=== PATIENT | male | born 1970 | race Caucasian/White ===

== ENCOUNTER 2020-09-02 09:40 | Day surgery (SDC) | payer OTHER ==
--- NOTE | 2020-09-01 14:23 | RAD REPORT ---
EXAM DESCRIPTION: RAD - Chest Pa And Lat (2 Views) - 09/01/2020 2:10 pm CLINICAL HISTORY: pe-op, pending cholecystectomy COMPARISON: Two view chest August 2016 TECHNIQUE: Frontal and lateral views of the chest were obtained. FINDINGS: The lungs are clear. Heart size is normal and central vasculature is within normal limit s. No pleural effusion or pneumothorax seen. No acute bony finding noted. No aortic abnormality. IMPRESSION: No acute cardiopulmonary process. No significant change from comparison study.
[2020-09-01 14:53] LABS: Absolute Lymphocytes (CBC) 1.4 K/uL (0.7-4.9); Basophils % 0.8 % (0-1.3); Hematocrit 45.1 % (39.6-49.0); Lymphocytes % 30.5 % (15.3-44.8); RBC Red Blood Cell Count 4.78 M/uL (4.33-5.43)
[2020-09-01 15:06] LABS: Albumin 3.7 g/dL (3.4-5.0); Bilirubin Direct 0.2 mg/dL (0-0.2); Bilirubin Total 0.6 mg/dL (0.2-1.0); Potassium 3.9 mmol/L (3.5-5.1); Protein, Total 7.4 g/dL (6.4-8.2)
--- NOTE | 2020-09-01 18:40 | EKG ---
Test Date: 2020-09-01 Test Time: 14:21:32 Yolk Spray Drier: VIVIENNE MEASUREMENT RESULTS: Intervals: Rate: 57 IA: 172 QRSD: 92 QT: 412 QTc: 401 [place]: P: 44 IA: 172 QRS: 20 T: 6 INTERPRETIVE STATEMENTS: Sinus bradycardia Otherwise normal ECG No previous ECG available for comparison Electronically Signed On 09-01-20 18:40:09 METER TESTER PRIMARY by Eddie Payton
[2020-09-02] MEDS ORDERED: FENTANYL CITR 100 MCG/2 ML ONE (10:00)
[2020-09-02] MEDS ORDERED: KETOROLAC 30 MG/ML INJ ONE (10:00)
[2020-09-02] MEDS ORDERED: propofoL 200 MG/20 ML VIAL IV ONE ×2 (10:00→11:40)
[2020-09-02] MEDS ORDERED: dexAMETHasone 10 MG/ML VIAL ONE (10:00)
[2020-09-02] MEDS ORDERED: MIDAZOLAM HCL 2 MG/2 ML INJ ONE (10:00)
[2020-09-02] MEDS ORDERED: LIDOCAINE 1% MPF 30 ML VIAL ONE (10:01)
[2020-09-02] MEDS ORDERED: ONDANSETRON 4 MG/2 ML VIAL ONE (10:01)
[2020-09-02] MEDS ORDERED: ROCURONIUM 50 MG/5 ML VIAL IV ONE (10:01)
[2020-09-02] MEDS ORDERED: Ringers Lactate 1,000 ML IV ONE ×2 (10:12→12:23)
[2020-09-02] MEDS ORDERED: CEFOXITIN/SWI 1gm 1 GM/10 ML SYR ONE (11:27)
[2020-09-02] MEDS ORDERED: GLYCOPYRROLATE 0.2 MG/ML SYR ONE ×2 (12:04→12:32)
[2020-09-02] MEDS ORDERED: EPHEDRINE SULF 50 MG/ML VIAL ONE (12:05)
--- NOTE | 2020-09-02 12:22 | P.BOP ---
Preoperative diagnosis: symptomatic cholelithiasis, acute cholecytitis, RUQ abd pain Postoperative diagnosis: same Primary procedure: Laparoscopic cholecystectomy Body Mechanic Apprentice: RIKKI PRESSLEY (LIQUOR RECTIFIER) Estimated blood loss: <10cc Specimen: gb Findings: as above Anesthesia: General Complications: None Transferred to: Recovery Room Condition: Good
[2020-09-02] MEDS ORDERED: NEOSTIGMINE 1 MG/ML -5 ML ONE (12:32)
[2020-09-02 13:22] VITALS: TEMP 97.1
[2020-09-02] MEDS ORDERED: CODEINE 30MG/APAP 300MG TAB ONE (14:09)
--- NOTE | 2020-09-02 14:24 | DS ---
Diagnoses: Acute cholecystitis, symptomatic cholelithiasis, right upper quadrant abdominal pain. Procedure: Laparoscopic cholecystectomy. Disposition: Home. Activity: As tolerated. No heavy lifting. Plan: Follow up in my office in 1 week. Call for appointment, [phone]. Keep area dry for 48 hours, then may shower. Keep Steri-Strips intact. Medications: Tylenol No. 3 q.4 hours p.r.n. pain, Bactrim DS p.o. b.i.d. RAJI/AZAEL Voice ID: [id number] Report ID: [id number]
--- NOTE | 2020-09-02 14:24 | OP ---
Date of Procedure: 09/02/2020 Surgeon: Estrada Cartagena MD Health Physics Technician: REEMA Hawk. Preoperative Diagnoses: Symptomatic cholelithiasis, acute cholecystitis, right upper quadrant abdomi nal pain. Postoperative Diagnoses: Symptomatic cholelithiasis, acute cholecystitis, right upper quadrant abdom inal pain. Procedure Performed: Laparoscopic cholecystectomy. Estimated Blood Loss: Less than 10 mL. Specimen: Gallbladder. Anesthesia: General plus local. Indications: This is the case of a 50-year-old patient who comes to us with abdominal pain. He has been trying to change his diet, but is still having the same discomfort, so he was booked for laparos copic possible open cholecystectomy with benefits, alternatives, and risks including, but not limited to infection, bleeding, damage to adjacent structures, anesthesia complication, choledocholithiasis, bile leak, pancreatitis, [place], and even . He also understands this may not relieve any symptoms. He might need more than one surgical intervention. He understood, signed a consent. Description Of Procedure: The patient was brought to the operating room and placed in supine positio n. Anesthesia was done without complication. Abdominal area was prepped and draped in usual sterile fashion. Marcaine 0.5% was injected for local anesthetic followed by sharp incision of the skin in the infraumbilical region. Incision was carried down to fascia, which was opened under direct vision . Peritoneum was encountered, opened under direct vision. Vicryl #1 was placed inside the fascia. Jacqueline trocar was carefully introduced. No bleeding was obtained. I placed 3 more trocars, 5 mm eac h one of them, 1 in epigastric area, 2 in the right upper quadrant under direct visualization. This allowed me to put a grasper in the fundus of the gallbladder, another grasper in the infundibulum ret racting the gallbladder in the inferolateral fashion exposing the triangle of Calot and obtaining cri tical view. The cystic duct and cystic artery were clearly isolated, freed circumferentially and a c onnection between those and the gallbladder were clearly identified. I proceeded to ligate those by using at least 3 clips proximal, 1 clip distal, ligation in middle. Same was done with the cystic ar renate. No bile leak. No bleeding. The gallbladder was removed from liver using Bovie cauterizer and removed from abdominal cavity using EndoCatch through the umbilical incision. The area was inspecte d once again. No bile leak. No bleeding. At that moment, I proceeded to remove the trocars under d irect vision. Deflated the pneumoperitoneum. Closed the fascia with #1 Vicryl. Irrigated the subcu taneous tissue and closed with 3-0 chromic and skin in a subcuticular fashion with 3-[address] jas-Strips on top. Sponge count and instrument counts correct. The patient tolerated the procedure well. The patient was sent to Recovery in stable condition. RAJI/AZAEL Voice ID: [id number] Report ID: [id number]
[2020-09-02 14:45] VITALS: BP 120/57; O2SAT 97
--- OUTSIDE RECORDS SUMMARY | 2020-09-02 14:55 | XMS REPORT | Continuity of Care Document ---
:1970 Author Organization [facility] t Address [address] [place] [address] Care Team Providers Name Role Phone Asked, Pcp Primary Care Physician Unavailable Christian Sanchez MD Attending Clinician Pob1, Care Clinic Attending Clinician Unavailable Froilan Zaragoza Attending Clinician Payers Payer Name Policy Type Policy Effective Date Expiration Date Sour ce Number AETNAAETNA [id number] 2007 [place] HMO,POS,EPO, 00:00:00 [facility] NURYS/[id number] /07/2006-[facility] [place] Problems Condition Condition Condition Status Onset Resolution Last Treating Co mments Source Name Details Category Date Date Treatment Clinician Date Tremor Problem Resolve 2019-07-07 Kunal mihai (finding) d 22:16:44 l Tremor [place] (finding) Resolved Problem 07/07/2019 [facility] Essential Problem Active 2019-07-07 Me moria tremor 22:16:44 l (disorder) Jimbo n Essential tremor (disorder) Active Problem 07/07/2019 [facility] Hypertensi Problem Active 2019-07-07 M emoria ve 22:16:44 l disorder, [place] systemic Hypertensi arterial ve (disorder) disorder, systemic arterial (disorder) Active Problem 07/07/2019 [facility] Paresthesi Problem Active 2019-07-07 M emoria a 22:16:44 l (finding) [place] Paresthesi a (finding) Active Problem 07/07/2019 [facility] Simple Problem Active 2019-07-07 Memor ia obesity 22:16:44 l (disorder) Simple Herm paddy obesity (disorder) Active Problem 07/07/2019 [facility] Allergies, Adverse Reactions, Alerts Allergy Allergy Status Severity Reaction(s) Onset Inactive Treating Comm ents Source Name Type Date Date Clinician No Known No Known Active Ivelisse lino Medicati Medicati l on on [place] Allergie Allergie s s Family History Family Member Diagnosis Comments Start Date Stop Date Source Natural mother Cancer [facility] thodist Social History Social Habit Start Date Stop Date Quantity Comments Source Sex Assigned At [facility] ethodist Tobacco use and 2019-08-21 2019-08-21 Never used [facility] ethodist exposure 00:00:00 00:00:00 Alcohol intake 2019-08-21 2019-08-21 Current drinker [place] [facility] 00:00:00 00:00:00 of alcohol (finding) Smoking Status Start Date Stop Date Source Never smoker [place] Methodis t Medications Ordered Filled Start Stop Current Ordering Indication Dosage Frequency Signature Comments Components Source Medication Medication Date Date Medication? Clinician (SIG) Name Name propranolol 2017-07 No 20 mg = 1 M emoria 20 mg oral 2-28 tab, PO, l tablet 14:56: BID, # 60 Jimbo n 00 tab, 3 Refill(s), Pharmacy: [facility] [id number] propranolol 2017-07 No 10 mg = 1 M emoria 10 mg oral 0-23 tab, PO, l tablet 20:59: BID, # 60 Jimbo n 00 tab, 3 Refill(s), Pharmacy: [facility] [id number] Lisinopril 2017-07 Yes 10 mg, PO, M emoria 0-23 Daily, 0 l 20:37: Refill(s) Erlin 00 Vital Signs Vital Name Observation Time Observation Value Comments Source Diastolic (mm Hg) 2018-07-20 14:39:00 [facility] alexal [place] Heart Rate 2018-07-[facility] 14:39[facility] BMI Calculated 2018-07-20 14:39:00 Ivelisse Sorto Weight 2018-07-20 14:39:00 [facility] Height 2018-07-20 14:39:[address] [facility] Systolic (mm Hg) 2018-07-20 14:39:00 Kunal Kern Height 2018-05-15 20:07:[address] [facility] BMI Calculated 2018-05-15 20:07:00 Ivelisse Sorto Weight 2018-05-15 20:07:00 [facility] Rolla Systolic (mm Hg) 2018-05-15 20:07:00 Kunal Taylorann Diastolic (mm Hg) 2018-05-15 20:07:00 Sanjay Taylorann Heart Rate 2018-05-15 20:07:00 [facility] Procedures Procedure Date / Time Performed Performing Clinician Sourc e Shoulder repair [facility] Plan of Care Planned Activity Planned Date Details Comments Source Future Scheduled Test 2020-02-22 INFLUENZA VACCINE [place] [facility] 00:00:00 [code = INFLUENZA VACCINE] Future Scheduled Test 2019 COLONOSCOPY [place] [facility] 00:00:00 SCREENING [code = COLONOSCOPY SCREENING] Future Scheduled Test 2019 SHINGLES VACCINES [place] [facility] 00:00:00 (#1) [code = SHINGLES VACCINES (#1)] Future Scheduled Test 1987 Hepatitis C [place] [facility] 00:00:00 screening (procedure) [code = 377162464] Future Scheduled Test 1985 COVID-19 VACCINE (1 [place] [facility] 00:00:00 of 2) [code = COVID-19 VACCINE (1 of 2)] Future Appointment 2020-09-08 J Carlos Jay MD, [place] [facility] 07:00:[address] [place] [address]; [address] [place] [address] Future Appointment 2020-09-08 J Carlos Jay MD, [place] [facility] 07:00:[address] [place] [address]; [address] [place] [address] Encounters Start End Encounter Admission Attending Care Care Encounter Source Date/Time Date/Time Type Type Clinicians Facility Department ID 2019-11-14 2019-11-14 Urgent Pob1, Acute [facility] [id number] 11:17:15 11:37:15 [facility] [id number] Lyn[place] [id number] Ebony [id number] nal [address] 2019-07-05 2019-07-05 Outpatient TUSHAR Zaragoza [id number] 09:15:00 09:15:00 Fahad Mcgovern 2018-07-20 2018-07-20 Outpatient TUSHAR ZaragozaSCHER [id number] 08:45:00 23:59:59 Fahad 02 Froilan 2018-07-10 2018-07-11 Outpatient TUSHAR MONTENEGROSCHER [id number] 13:13:00 23:59:59 00 2018-06-22 2018-06-22 Outpatient TUSHAR Zaragoza [id number] 09:45:00 09:45:00 Fahad 01 Froilan 2018-05-15 2018-05-15 Outpatient TUSHAR Zaragoza [id number] 15:15:00 23:59:59 Fahad 00 Froilan Results Test Description Test Time Test Comments Results Result Comments Source ANEMIA STUDY 2018-05-18 321 [facility] 16:12:00 CHEM PANEL 2018-05-18 27 [facility] nn 16:12:00 CHEM PANEL 2018-05-18 21 [facility] 16:12:00 CHEM PANEL 2018-05-18 43 [facility] 16:12:00 CHEM PANEL 2018-05-18 71 [facility] 16:12:00 CHEM PANEL 2018-05-18 1.20 [facility] 16:12:00 CHEM PANEL 2018-05-18 4.2 [facility] 16:12:00 CHEM PANEL 2018-05-18 26 [facility] 16:12:00 CHEM PANEL 2018-05-18 9.5 [facility] 16:12:00 CHEM PANEL 2018-05-18 104 [facility] 16:12:00 CHEM PANEL 2018-05-18 2.4 [facility] 16:12:00 CHEM PANEL 2018-05-18 1.8 [facility] 16:12:00 CHEM PANEL 2018-05-18 0.7 [facility] 16:12:00 CHEM PANEL 2018-05-18 4.6 [facility] 16:12:00 CHEM PANEL 2018-05-18 20 [facility] 16:12:00 CHEM PANEL 2018-05-18 102 [facility] 16:12:00 CHEM PANEL 2018-05-18 6.6 [facility] 16:12:00 CHEM PANEL 2018-05-18 82 [facility] 16:12:00 CHEM PANEL 2018-05-18 137 [facility] 16:12:00 HEMATOLOGY 2018-05-18 2 [facility] 16:12:00 HEMATOLOGY 2018-05-18 201 [facility] nn 16:12:00 HEMATOLOGY 2018-05-18 402 [facility] nn 16:12:00 HEMATOLOGY 2018-05-18 854 [facility] U[facility] nn 16:12:00 HEMATOLOGY 2018-05-18 10.0 [facility] nn 16:12:00 HEMATOLOGY 2018-05-18 34.7 [facility] nn 16:12:00 HEMATOLOGY 2018-05-18 16:12:00 Test Item Value Reference Range Interpretation Comme nts MCH (test code = MCH) 32.4 pg 27.0-33.0 [facility] [id number] 16:12:0012.9[facility] HermannHEMATOLOGY 2018-05-18 16:12:000.5[facility] JwllcqkTYGLUEUXRD1076-55-23 16:12:005.2[facility] JjgbghuGNNKANPQIG8390-93-24 16:12:0010.3[facility] SwavoinBYCBFJXMLW5173-29-05 16:12:71775Maoprppz QgyjsmtIEFLIXSPLT3361-49-43 16:12:580314Chmdjbxx [place]lin WGINNBIZZR2682-30-55 16:12:0021.9[facility] YnhnoiuQBSJVZCPTC8908-25-84 16:12:00 62.1[facility] SdjirocVATCXTSRRL9206-62-56 16:12:0020[facility] HermannHEMATOLOGY 2018-05-18 16:12:0093.3[facility] NhuaflzDHUTZIHLDI3293-22-52 16:12:0051.3[facility]orial YtrvgpbODWWZVXFSP2523-56-83 16:12:003.9[facility] GokwmodDELLEYHMRV4315-69-00 16:12:0017.8[facility] WelrsduLVPVUOKYWB7525-66-74 16:12:005.50[facility] Rolla ZTAEGOZRQW4854-05-97 16:12:0021[facility] Erlin
--- OUTSIDE RECORDS SUMMARY | 2020-09-02 14:55 | XMS REPORT | Clinical Summary ---
:1970 Author Organization [facility] Address [address] [place] [address] Care Team Providers Name Role Phone Asked, Pcp Primary Care Provider Unavailable Allergies No Known Active Allergies Medications No known medications Active Problems No known active problems Encounters Date Type Specialty Care Team Description 07/09/2020 Orders Only General Surgery Pravin Sanchez, Pre -op testing (Primary Dx); Hiatal hernia 06/09/2020 Travel after 09/02/2019 Family History Medical History Relation Name Comments Cancer Mother Betty alarcon Mother Relation Name Status Comments Mother Betty alarcon Social History Tobacco Use Types Packs/Day Years Used Date Never Smoker 0 0 Smokeless Tobacco: Never Used Alcohol Use Drinks/Week oz/Week Comments Yes 6 Cans of beer 6.0 Sex Assigned at Date Recorded Not on file Last Filed Vital Signs Not on file Plan of Treatment Date Type Specialty Care Team Description 09/08/2020 Hospital Encounter Gastroenterology J Carlos Jay MD [address] [facility] [address] [place], [place] [address] [phone] 09/08/2020 Surgery Gastroenterology J Carlos Jay ESOPHAGEA L MANASHANTI Alexandre MD WITH IMPEDANCE PROBE [address] [facility] [address] [place], [place] [address] [phone] 09/09/2020 Office Visit General Surgery Pravin Sanchez MD [address] [facility] [facility] [address] [place], [place] [address] [phone] Health Maintenance Due Date Last Done Comments COVID-19 VACCINE (1 of 2) 1985 HEPATITIS C SCREENING 1987 COLONOSCOPY SCREENING 2019 SHINGLES VACCINES (#1) 2019 INFLUENZA VACCINE 02/22/2020 Results Not on fileafter 09/02/2019 Advance Directives For more information, please contact: [phone] Type Date Recorded Patient Air Brake Adjuster Explanati on Advance Directives, Living Will and Medical Power of Automatic Spreader Operator
--- OUTSIDE RECORDS SUMMARY | 2020-09-02 14:55 | XMS REPORT | Continuity of Care Document ---
:1970 Author Organization [employer] Care Team Providers Name Role Phone [employer] [employer] Unavailable Un available Problems Problem Status Onset Classification Date Comments Sourc e Date Reported Essential tremor Active Problem 07/07/2019 Mi giovanny (disorder) Neuro Hypertensive Active Problem 07/07/2019 Mische r disorder, Neuro systemic arterial (disorder) Paresthesia Active Problem 07/07/2019 [facility] (finding) Neuro Simple obesity Active Problem 07/07/2019 Misc her (disorder) Neuro Tremor (finding) Resolved Problem 07/07/2019 Mi giovanny Neuro Medications Medication Details Route Status Patient Ordering Order Source Instructions Provider Date propranolol 20 20 mg = 1 No Longer Misch er mg oral tablet tab, PO, Active 018 Neuro BID, # 60 tab, 3 Refill(s), Pharmacy: [facility] [id number] propranolol 10 10 mg = 1 No Longer Misch er mg oral tablet tab, PO, Active 018 Neuro BID, # 60 tab, 3 Refill(s), Pharmacy: [facility] [id number] Lisinopril 10 mg, PO, Active Mischer Daily, 0 018 Neuro Refill(s) Allergies, Adverse Reactions, Alerts Substance Category Reaction Severity Reaction Status Date Comments S ource type Reported No Known Assertion Drug Misch er Medication allergy Neuro Allergies Immunizations No Data Provided for This Section Results Order Name Results Value Reference Date Interpretation Comments Monica rce Range ANEMIA Vitamin B12 321 200 - 1100 05/18 Result [facility] STUDY Comment: Neuro
Please Note: Although the reference range for vitamin
B 12 is 200-1100 pg/mL, it has been reported that between
5 and 10% of patients with values between 200 and 400
pg/mL may experience neuropsychiat reji and hematologic<b r/>abnormalit ies due to occult B12 deficiency; less than 1%
of patients with values above 400 pg/mL will have symptoms.<br/ >
FASTING: YES
AN UPDATE OR CORRECTION HAS BEEN MADE TO SEX
<b r/>FASTING: YES

Lab test performed by:
[facility]
[address] [place] [address]
[place] [phone]
Sherry Ba CHEM PANEL ALANINE 27 9 - 46 05/18 [facility] AMINOTRANSFER Neuro ASE CHEM PANEL ASPARTATE 21 10 - 40 05/18 [facility] TRANSAMINASE /2018 Neuro CHEM PANEL Alk Phos 43 40 - 115 05/18 [facility] CHEM PANEL eGFR NON-AFR. 71 > OR = 60 05/18 [facility] er KENYAN mL/min/1.7 Neuro 3m2 CHEM PANEL Creatinine 1.20 0.60 - 05/18 [facility] Lvl 1.35 /2017 Neuro CHEM PANEL Albumin Lvl 4.2 3.6 - 5.1 05/18 [facility] CHEM PANEL CO2 26 20 - 32 05/18 [facility] CHEM PANEL Calcium Lvl 9.5 8.6 - 10.3 05/18 M[facility] r Neuro CHEM PANEL Chloride Lvl 104 98 - 110 05/18 [facility] CHEM PANEL Globulin 2.4 1.9 - 3.7 05/18 [facility] CHEM PANEL A/G Ratio 1.8 1.0 - 2.5 05/18 [facility] CHEM PANEL Bili Total 0.7 0.2 - 1.2 05/18 [facility] CHEM PANEL Potassium Lvl 4.6 3.5 - 5.3 05/18 Misch er Neuro CHEM PANEL BUN 20 7 - 25 05/18 [facility] CHEM PANEL Glucose Lvl 102 65 - 99 05/18 Result [facility] Comment: Neuro
Fasting reference interval

For someone without known diabetes, a glucose value
bet ween 100 and 125 mg/dL is consistent with
p rediabetes and should be confirmed with a
follow- up test.

Lab test performed by:
[facility]
[address] [facility]
[place] [address]
Sherry Ba CHEM PANEL Total Protein 6.6 6.1 - 8.1 05/18 [facility] Neuro CHEM PANEL eGFR 82 > OR = 60 05/18 [facility] r KENYAN mL/min/1.7 Neuro 3m2 CHEM PANEL Sodium Lvl 137 135 - 146 05/18 Neuro CHEM PANEL B/C Ratio NOT 6 - 22 05/18 [facility] APPLICABLE Neuro HEMATOLOGY Sed Rate 2 < OR = 15 05/18 Result [facility] mm/hr /2017 Comment: Neuro
Lab test performed by:
[facility]
[address] [facility]
[place] [phone]
Sherry Ba HEMATOLOGY Platelet 201 140 - 400 05/18 Neuro HEMATOLOGY Monocytes # 402 200 - 950 05/18 Neuro HEMATOLOGY Lymphocytes # 854 850 - 3900 05/18 Misc her Neuro HEMATOLOGY MPV 10.0 7.5 - 12.5 05/18 Mis Neuro HEMATOLOGY MCHC 34.7 32.0 - 05/18 [facility]ischer 36.0 Neuro HEMATOLOGY MCH 32.4 27.0 - 05/18 [facility] 33.0 Neuro HEMATOLOGY RDW 12.9 11.0 - 05/18 [facility] 15.0 Neuro HEMATOLOGY Basophils 0.5 05/18 Neuro HEMATOLOGY Eosinophils 5.2 05/18 Neuro HEMATOLOGY Monocytes 10.3 05/18 Neuro HEMATOLOGY Eosinophils # 203 15 - 500 05/18 Mische r Neuro HEMATOLOGY Neutrophils # 2422 1500 - 05/18 [facility] 7800 Neuro HEMATOLOGY Lymphocytes 21.9 05/18 Neuro HEMATOLOGY Segs 62.1 05/18 Neuro HEMATOLOGY Basophils # 20 0 - 200 05/18 Neuro HEMATOLOGY MCV 93.3 80.0 - 05/18 [facility]ischer 100.0 2018 Neuro HEMATOLOGY Hct 51.3 38.5 - 05/18 [facility] 50.0 2018 Neuro HEMATOLOGY WBC X 10x3 3.9 3.8 - 10.8 05/18 Result Comment: Neuro
Lab test performed by:
[facility]
[address] [facility]
[place] [phone]
Sherry Jaspreet Ba HEMATOLOGY Hgb 17.8 13.2 - 05/18 [facility] 17. Neuro HEMATOLOGY RBC X 10x6 5.50 4.20 - 05/18 [facility] 5. Neuro IMMUNOLOGY CERULOPLASMIN 21 18 - 36 05/18 Result Comment: Neuro
Lab test performed by:
[facility]
[address] [facility]
[place] [phone]
Dr[address] Donte Peck Pathology Reports No Data Provided for This Section Diagnostic Reports No Data Provided for This Section Consultation Notes No Data Provided for This Section Discharge Summaries No Data Provided for This Section History and Physicals No Data Provided for This Section Vital Signs Vital Sign Value Date Comments Source BMI Calculated 30.17 07/20/2018 [facility] Neuro Weight 100.909 07/20/2018 [facility] Neuro Height 182.88 cm 07/20/2018 [facility] Neuro Systolic (mm Hg) 139 07/20/2018 [facility] Quirino ro Diastolic (mm Hg) 76 07/20/2018 [facility] Ne uro Heart Rate 63 07/20/2018 [facility] Neuro Height 180.34 cm 05/15/2018 [facility] Neuro BMI Calculated 31.17 05/15/2018 [facility] Neuro Weight 101.364 05/15/2018 [facility] Neuro Systolic (mm Hg) 141 05/15/2018 [facility] Quirino ro Diastolic (mm Hg) 79 05/15/2018 [facility] Ne uro Heart Rate 71 05/15/2018 [facility] Neuro Encounters Location Location Encounter Encounter Reason Attending ADM [place] Stat us Source Details Type Number For Provider Date Date Visit Outpatient [id number] MALA 05/15 Active [facility] [place] MNA Outpatient [id number] Mala 05/15 05/16 [facility] Neurology [facility] Neuro [facility] Outpatient [id number] MALA 06/[address] [facility] [place] MNA Ambulatory [id number] Mala 06/22 06/22 [facility] Neurology Pre-Reg [facility] Neuro [place] MNA Outside [id number] 07/10 07/12 [facility]2017 Neuro [place] Records Outpatient [id number] MALA 07/20 Active [facility] [place] MNA Outpatient [id number] Mala 07/20 [facility] Neuro [facility] Outpatient [id number] Mala 10/19 Active [facility] [place] Outpatient [id number] Mala 07/05 [facility] [place] MNA Ambulatory [id number] Mala 07/05 07/05 [facility] Neurology Pre-Reg [facility] Neuro Bandera Procedures Procedure Code Date Perfomer Comments Source Shoulder repair [id number] Charla N euro Assessment and Plan No Data Provided for This Section Plan of Care No Data Provided for This Section Social History Social History Date Source Social History TypeResponse [facility]19[facility] Smoking Status Unknown if ever smoked; Exposure to Toba accordion maker Smoke Unable to obtain; Cigarette Smoking Last 365 Days Unable to obtain; Reg Smoking Cessation Counseling No entered on: 10/19/18 Family History No Data Provided for This Section Advance Directives No Data Provided for This Section Functional Status No Data Provided for This Section
== END 2020-09-02 14:40 | disposition home or self-care (01) ==
LOC: OR 09:40
PROVIDERS: ATTEND Surgery
PROC: 0FT44ZZ Resection of Gallbladder, Percutaneous Endoscopic Approach (ICD-10-PCS; principal; 2020-09-02 11:00)
DX: K80.00 Calculus of gallbladder with acute cholecystitis without obstruction (principal); Z20.822 Contact with and (suspected) exposure to COVID-19
CPT/HCPCS: 36415; 71046; 80048; 80076; 82150; 83690; 85025; 88304; 93005; J1100; J2250; J2405; J2704; J2710; J3010; J7120; U0002